=== PATIENT | female | born 2000 | race African-American/Black ===

== ENCOUNTER 2019-06-07 02:21 | Emergency (ER) | payer BC ==
[2019-06-07] MEDS ORDERED: Prochlorperazine 10 MG/2 ML SDV IVPUSH ONE (03:11)
[2019-06-07] MEDS ORDERED: diphenhydrAMINE 50 MG/ML SDV IVPUSH ONE (03:11)
[2019-06-07] MEDS ORDERED: Sodium Chloride 0.9% 1,000 ML IV ONE (03:13)
--- NOTE | 2019-06-07 04:33 | CT ---
HISTORY: Headache. TECHNIQUE: CT brain without contrast. COMPARISON: None. FINDINGS: No acute intracranial hemorrhage. No extra-axial collection. No mass effect or midline shift. Palacios-white differentiation is maintained. Ventricular system is normal in caliber and morphology. Cisterns are patent. Calvarium is intact. Moderate mucosal thickening in the right maxillary sinus with small amount of layering fluid. Mastoid air cells are clear. IMPRESSION: 1. No acute intracranial abnormality. 2. Inflammatory changes in the right maxillary sinus. Please note that all CT scans at this facility use dose modulation, iterative reconstruction, and/or weight-based dosing when appropriate to reduce radiation dose to as low as reasonably achievable. Dictated by David Jacobson MD @ Jun 07 2019 4:29AM Signed by Dr. David Jacobson @ Jun 07 2019 4:31AM
[2019-06-07] MEDS ORDERED: Ketorolac 30 MG/ML SDV IVPUSH ONE (04:56)
--- NOTE | 2019-06-07 05:16 | EDM.PDOC ---
ED HPI GENERAL MEDICAL PROBLEM - General Chief Complaint: Headache Stated Complaint: MIGRAINE Time Seen by Provider: 06/07/19 03:38 Source of Information: Reports: Patient - History of Present Illness INITIAL COMMENTS - FREE TEXT/NARRATIVE: Pt with no pmh presents with 1.5 weeks of right sided headache. Pt reports photophobia and phonophobia. no nausea or vomiting or fever. Headache Pain Score (Numeric/FACES): 6 - Related Data Allergies Allergy/AdvReac Type Severity Reaction Status Date / Time No Known Allergies Allergy Verified 06/07/19 03:28 Home Meds: Home Meds . 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 Musculoskeletal History: Reports: None Neurological History: Reports: Migraines Psychiatric History: Reports: Depression Endocrine/Metabolic History: Reports: None Hematologic History: Reports: None Immunologic History: Reports: None Oncologic (Cancer) History: Reports: None Dermatologic History: Reports: None - Infectious Disease History Infectious Disease History: Reports: None - Past Surgical History Head Surgeries/Procedures: Reports: None Social & Family History - Tobacco Use Smoking Status *Q: Current Every Day Smoker Years of Tobacco use: 2 Packs/Tins Daily: 0.1 - Recreational Drug Use Recreational Drug Use: No ED ROS GENERAL - Review of Systems Review Of Systems: See Below Constitutional: Reports: No Symptoms HEENT: Reports: Sinus Problem Respiratory: Reports: No Symptoms Cardiovascular: Reports: No Symptoms GI/Abdominal: Reports: No Symptoms : Reports: No Symptoms Musculoskeletal: Reports: No Symptoms Skin: Reports: No Symptoms Neurological: Reports: Headache. Denies: Numbness, Weakness - Physical Exam Exam: See Below General Appearance: Alert, WD/WN, No Apparent Distress Head Exam: Atraumatic, Normocephalic Neck: Normal Inspection Respiratory/Chest: Lungs Clear, Normal Breath Sounds Cardiovascular: Regular Rate, Rhythm, No Murmur GI/Abdominal: Non-Tender, No Distention Neuro Exam (Abbreviated): Alert, Oriented, CN II-XII Intact, Normal Cognition Course - Vital Signs Last Recorded V/S: Last Vital Signs Temp 97.6 F 06/07/19 05:30 Pulse 110 H 06/07/19 05:30 Resp 16 06/07/19 05:30 BP 121/80 06/07/19 05:30 Pulse Ox 98 06/07/19 05:30 - Orders/Labs/Meds Labs: Laboratory Tests 06/07/19 06/07/19 Range/Units 03:30 03:30 Urine Color YELLOW Urine Appearance CLEAR Urine pH 6.0 (5.0-8.0) Ur Specific Sneads 1.015 (1.001-1.035) Urine Protein NEGATIVE (NEGATIVE) mg/dL Urine Glucose (UA) NEGATIVE (NEGATIVE) mg/dL Urine Ketones NEGATIVE (NEGATIVE) mg/dL Urine Occult Blood NEGATIVE (NEGATIVE) Urine Nitrite NEGATIVE (NEGATIVE) Urine Bilirubin NEGATIVE (NEGATIVE) Urine Urobilinogen 0.2 (<2.0) EU/dL Ur Leukocyte Esterase TRACE H (NEGATIVE) Urine RBC NONE SEEN (0-2/HPF) Urine WBC 0-3 (0-5/HPF) Ur Epithelial Cells MODERATE (NONE-FEW) Urine Bacteria FEW (NEGATIVE) Urine Mucus LIGHT (NONE-MOD) Urine HCG, Qual NEGATIVE (NEGATIVE) Meds: Medications Discontinued Medications Generic Name Dose Route Start Last Admin Trade Name Freq PRN Reason Stop Dose Admin Diphenhydramine HCl 25 mg 06/07/19 03:11 06/07/19 03:37 Benadryl IVPUSH 06/07/19 03:12 25 mg ONETIME ONE Administration Sodium Chloride 1,000 mls @ 999 mls/hr 06/07/19 03:13 06/07/19 03:36 Normal Saline IV 06/07/19 04:13 999 mls/hr .Bolus ONE Administration Ketorolac Tromethamine 30 mg 06/07/19 04:56 06/07/19 05:09 Toradol IVPUSH 06/07/19 04:57 Not Given ONETIME ONE Prochlorperazine Edisylate 10 mg 06/07/19 03:11 06/07/19 03:40 Compazine IVPUSH 06/07/19 03:12 10 mg ONETIME ONE Administration - Re-Assessments/Exams Free Text/Narrative Re-Assessment/Exam: VS stable and PE benign. CT Head negative other than sinusitis. Flonase recommended. Symptoms completely resolved with ED therapy and pt comfortable with discharge. Strict return precaution discussed should symptoms worsen or any concerns arise Departure - Departure Time of Disposition: 05:20 Disposition: Home, Self-Care 01 Condition: Good Clinical Impression: Migraine, Sinusitis - Discharge Information *PRESCRIPTION DRUG MONITORING PROGRAM REVIEWED*: Not Applicable *COPY OF PRESCRIPTION DRUG MONITORING REPORT IN PATIENT ALEJANDRA: Not Applicable Instructions: Recurrent Migraine Headache, [id number], Sinus Headache, Easy- to-Read Referrals: PCP,None [Primary Care Provider] - Forms: ED Department Discharge Additional Instructions: The following information is given to patients seen in the emergency department who are being discharged to home. This information is to outline your options for follow-up care. We provide all patients seen in our emergency department with a follow-up referral. The need for follow-up, as well as the timing and circumstances, are variable depending upon the specifics of your emergency department visit. If you don't have a primary care physician on staff, we will provide you with a referral. We always advise you to contact your personal physician following an emergency department visit to inform them of the circumstance of the visit and for follow-up with them and/or the need for any referrals to a consulting specialist. The emergency department will also refer you to a specialist when appropriate. This referral assures that you have the opportunity for follow-up care with a specialist. All of these measure are taken in an effort to provide you with optimal care, which includes your follow-up. Under all circumstances we always encourage you to contact your private physician who remains a resource for coordinating your care. When calling for follow-up care, please make the office aware that this follow-up is from your recent emergency room visit. If for any reason you are refused follow-up, please contact the [facility] Emergency Department at and asked to speak to the emergency department charge nurse. [facility] [address] [place] [id number] [address] Sepsis Event Note - Evaluation Sepsis Screening Result: No Definite Risk - Focused Exam Date Exam was Performed: 06/09/19 Time Exam was Performed: 00:12
== END 2019-06-07 05:30 | disposition home or self-care (01) ==
LOC: MW.ED 02:21
DX: G43.909 Migraine, unspecified, not intractable, without status migrainosus (principal); J32.9 Chronic sinusitis, unspecified; F17.210 Nicotine dependence, cigarettes, uncomplicated
CPT/HCPCS: 70450; 81001; 81025; 87086; 96361; 96374; 96375; 99284; J0780; J1200; J7030; 99283

== ENCOUNTER 2021-02-12 23:00 | Emergency (ER) | payer SELFPAY | END 2021-02-12 23:19 | disposition left against medical advice (07) | LOC: MW.ED 23:00 | DX: Z53.21 Procedure and treatment not carried out due to patient leaving prior to being seen by health care provider (principal) ==

== ENCOUNTER 2021-02-13 08:48 | Emergency (ER) | payer SELFPAY ==
--- NOTE | 2021-02-13 08:54 | EDM.PDOC ---
ED HPI GENERAL MEDICAL PROBLEM - General Chief Complaint: ENT Problem Stated Complaint: TOOTH ABSCESS/DRAIN Time Seen by Provider: 02/13/21 08:49 Source of Information: Reports: Patient History Limitations: Reports: No Limitations - History of Present Illness INITIAL COMMENTS - FREE TEXT/NARRATIVE: 20-year-old female presents for pain and swelling of the left maxillary face. S he is concerned that she has a dental abscess. She has an appointment with a dentist next week but is unable to get in until then considering into the weekend. She was here last night for similar but left as the wait time was quite long. She notes continued pain throughout the evening. Denies fevers. Denies respiratory difficulties. 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 ED EXAM, GENERAL - Physical Exam Exam: See Below Exam Limited By: No Limitations General Appearance: Alert, WD/WN, No Apparent Distress Ears: Hearing Grossly Normal Nose: Normal Inspection Throat/Mouth: Normal Voice, No Airway Compromise, Other (Swelling of the left maxillary face consistent with underlying dental abscess, erythema of gums on the left upper teeth.) Head: Atraumatic, Normocephalic Neck: Normal Inspection Respiratory/Chest: No Respiratory Distress, Lungs Clear, Normal Breath Sounds, No Accessory Muscle Use Cardiovascular: Normal Peripheral Pulses, Regular Rate, Rhythm Extremities: Normal Inspection Neurological: Alert, Normal Cognition, Normal Gait Psychiatric: Normal Affect, Normal Mood Skin Exam: Warm, Dry, Intact, Normal Color Course - Vital Signs Last Recorded V/S: Last Vital Signs Temp 97.7 F 02/13/21 08:58 Pulse 112 H 02/13/21 08:58 Resp 19 02/13/21 08:58 BP 127/87 02/13/21 08:58 Pulse Ox 99 02/13/21 08:58 - Re-Assessments/Exams Free Text/Narrative Re-Assessment/Exam: 02/13/21 09:15 Symptoms consistent with dental abscess. Will give Augmentin prescription. Will give analgesia. Recommend follow-up with dentist next week. Return precautions discussed. Departure - Departure Time of Disposition: 09:09 Disposition: Home, Self-Care 01 Condition: Good Clinical Impression: Dental abscess - Discharge Information Prescriptions: Amoxicillin/Clavulanate K [Augmentin 875-125 MG] 1 tab PO BID 10 Days #20 tablet Acetaminophen/oxyCODONE [Percocet 325-5 MG] 1 each PO Q4H PRN #12 tab PRN Reason: Pain Instructions: Dental Abscess, [id number] Referrals: PCP,None [Primary Care Provider] - Forms: ED Department Discharge Additional Instructions: You appear to have a dental abscess. Antibiotics were prescribed. Please follow-up with your dentist. Even if your symptoms are rapidly improving I would suggest following up with your dentist as they are likely to recur without dental intervention. If you are having difficulty breathing or if symptoms are not improving despite antibiotics and come back to the emergency department for reassessment. Thank you for trusting us with your care today. The following information is given to patients seen in the emergency department who are being discharged to home. This information is to outline your options for follow-up care. We provide all patients seen in our emergency department with a follow-up referral. The need for follow-up, as well as the timing and circumstances, are variable depending upon the specifics of your emergency department visit. If you don't have a primary care physician on staff, we will provide you with a referral. We always advise you to contact your personal physician following an emergency department visit to inform them of the circumstance of the visit and for follow-up with them and/or the need for any referrals to a consulting specialist. The emergency department will also refer you to a specialist when appropriate. This referral assures that you have the opportunity for follow-up care with a specialist. All of these measure are taken in an effort to provide you with optimal care, which includes your follow-up. Under all circumstances we always encourage you to contact your private physician who remains a resource for coordinating your care. When calling for follow-up care, please make the office aware that this follow-up is from your recent emergency room visit. If for any reason you are refused follow-up, please contact the [facility] Emergency Department at and asked to speak to the emergency department charge nurse. Please follow up with your primary care physician. If you do not have a primary care physician, see below: [facility] [address] [place] [phone] [facility] [address] [place] [address] [facility] [address] [place] [id number] Sepsis Event Note (ED) - Focused Exam Vital Signs: Vital Signs Temp Pulse Resp BP Pulse Ox 02/13/21 08:58 97.7 F 112 H 19 127/87 99
== END 2021-02-13 09:27 | disposition home or self-care (01) ==
LOC: MW.ED 08:48
DX: K04.7 Periapical abscess without sinus (principal)
CPT/HCPCS: 99282

== ENCOUNTER 2021-02-21 10:45 | Emergency (ER) | payer SELFPAY ==
[2021-02-21] MEDS ORDERED: predniSONE 20 MG Tab PO ONE (11:16)
--- NOTE | 2021-02-21 11:21 | EDM.PDOC ---
ED HPI GENERAL MEDICAL PROBLEM - General Chief Complaint: Skin Complaint Stated Complaint: BODY HIVES Time Seen by Provider: 02/21/21 11:00 Source of Information: Reports: Patient History Limitations: Reports: No Limitations - History of Present Illness INITIAL COMMENTS - FREE TEXT/NARRATIVE: HISTORY AND PHYSICAL: History of present illness: The patient is a 20-year-old female who presents to the emergency room with complaints of a full body rash/hives that came up yesterday evening. The patient describes the hives as very itchy. The patient had a dental extraction on for which she was started on amoxicillin and hydrocodone. She denies any shortness of breath or throat itchiness. The patient did have some lip swelling and facial swelling yesterday evening and earlier this morning but has resolved. She states she has not taken any medication such as Benadryl. She has never had this happen before. Prior to today she has never had an allergic reaction. Patient denies any fever, chills, headache, change in vision, syncope or near syncope. Denies any chest pain, back pain, shortness of breath or cough. Denies any abdominal pain, nausea, vomiting, diarrhea, constipation or dysuria. Has not noted any blood in urine or stool. Patient has been eating and drinking appropriately. Review of systems: As per history of present illness and below otherwise all systems reviewed and negative. Past medical history: As per history of present illness and as reviewed below otherwise noncontributory. Surgical history: As per history of present illness and as reviewed below otherwise noncontributory. Social history: See social history for further information Family history: As per history of present illness and as reviewed below otherwise noncont ributory. Physical exam: General: Well developed and well nourished. Alert and orientated x 3. Nontoxic in appearance and in no acute distress. Vital signs are stable and have been reviewed by me. Nursing notes were reviewed. HEENT: Atraumatic, normocephalic, pupils equal and reactive bilaterally, negative for conjunctival pallor or scleral icterus, mucous membranes moist, TMs normal bilaterally, throat clear, neck supple, nontender, trachea midline. No drooling or trismus noted. No meningeal signs. No hot potato voice noted. Lungs: Clear to auscultation bilaterally. No wheezes, rales, or rhonchi. Chest nontender. Normal work of breathing, no accessory muscles used. Heart: S1S2, regular rate and rhythm without overt murmur, gallops, or rubs. No JVD. No peripheral edema Abdomen: Soft, nondistended, nontender. Normoactive bowel sounds. Negative for masses or costovertebral tenderness. Skin: Intact, warm, dry. Hives noted covering face, anterior posterior trunk, upper and lower extremities. Hematologic: No petechiae or purpra. Mucosa appropriate color and normal nail bed color and refill. Extremities: Atraumatic, moves all extremities per self without difficulty or deficits, negative for cords or calf pain. Neurovascular unremarkable. Neuro: Awake, alert, oriented. Cranial nerves II through XII unremarkable. Cerebellum unremarkable. Motor and sensory unremarkable throughout. Exam nonfocal. Psychiatric: Mood and affect are appropriate. Normal thought process. Answering questions appropriately. Notes: *This patient was seen and evaluated during the 2019 SARS-CoV-2 novel coronavirus pandemic period. Community viral transmission is ongoing at time of this encounter and the emergency department is operating under pandemic response procedures. As stated above the patient is a 20-year-old female who presents with urticaria that started last night after the patient started on amoxicillin and hydrocodone for tooth extraction on . The patient describes her urticaria is very itchy. The patient states that she had noted some facial swelling and perioral swelling. I will treat the patient with 40 mg of prednisone daily for 5 days. I will give her her first dose in the emergency department. I have instructed the patient that she can use Benadryl or Claritin [id number] for her itchiness. I educated the patient on when she will need to return to the emergency department for symptoms. I educated the patient of the need for her to tell all healthcare providers and anyone that ask about her allergies that she is allergic to amoxicillin and hydrocodone as we do not cannot tell which one caused the allergic reaction. I have talked with the patient about today's findings, in addition to providing specific details for plan of care. Reassessment at the time of disposition demonstrates that the patient is in no acute distress. The patient is stable for discharge, counseling was provided and we discussed in great detail signs and symptoms that would prompt them to return to the Emergency Department. Medication, follow up and supportive care measures were reviewed and discussed. Voices understanding and is agreeable to plan of care. Denies any further questions or concerns at this time. Therapeutics: Prednisone 40 mg Prescription: Prednisone 40 mg p.o. daily x4 Impression: Drug allergy reaction Plan: 1. You were evaluated today on an emergent basis. Your complaints of a rash or hives covering your entire body was evaluated and found to be caused by an allergic reaction either from your amoxicillin or from the hydrocodone that you started on for your dental extraction. You need to stop taking the amoxicillin and the hydrocodone. You need to tell any health professional that you are allergic to amoxicillin and hydrocodone. I have treated you with prednisone 40 mg in the ER. You will take prednisone 40 mg daily for 4 days. You can also take Benadryl 50 mg for your itching or you could take Claritin which is less sedating. If you have any kind of shortness of breath or facial swelling or swelling around your mouth please return to the emergency department as this could be life-threatening. 2. You can alternate Tylenol and ibuprofen as needed for pain and fever management. 3. We encourage you to follow up with your primary care provider and/or recommended specialist in the next few days for re-evaluation and further care/management. 4. If your symptoms should worsen, new symptoms develop or any of the signs and symptoms we discussed should arise please return to the emergency room or call 911 (if needed). Definitive disposition and diagnosis as appropriate pending reevaluation and review of above. - Related Data Allergies Allergy/AdvReac Type Severity Reaction Status Date / Time No Known Allergies Allergy Verified 02/21/21 11:08 Home Meds: Home Meds predniSONE [Prednisone] 40 mg PO DAILY 4 Days #8 tablet 02/21/21 [Rx] Past Medical History - Past Health History Medical/Surgical History: Denies Medical/Surgical History HEENT History: Reports: None Cardiovascular History: Reports: None Respiratory History: Reports: None Gastrointestinal History: Reports: None Genitourinary History: Reports: None [employer] History: Reports: None Musculoskeletal History: Reports: None Neurological History: Reports: Migraines Psychiatric History: Reports: Depression Endocrine/Metabolic History: Reports: None Hematologic History: Reports: None Immunologic History: Reports: None Oncologic (Cancer) History: Reports: None Dermatologic History: Reports: None - Infectious Disease History Infectious Disease History: Reports: None - Past Surgical History Head Surgeries/Procedures: Reports: None Social & Family History - Family History Family Medical History: No Pertinent Family History - Caffeine Use Caffeine Use: Reports: Energy Drinks ED ROS GENERAL - Review of Systems Review Of Systems: Comprehensive ROS is negative, except as noted in HPI. ED EXAM, SKIN/RASH Exam: See Below (See dictation) Course - Vital Signs Last Recorded V/S: Last Vital Signs Temp 98.3 F 02/21/21 11:09 Pulse 106 H 02/21/21 11:09 Resp 18 02/21/21 11:09 BP 124/83 02/21/21 11:09 Pulse Ox 98 02/21/21 11:09 - Orders/Labs/Meds Meds: Medications Discontinued Medications Generic Name Dose Route Start Last Admin Trade Name Freq PRN Reason Stop Dose Admin Prednisone 40 mg 02/21/21 11:16 Prednisone 20 Mg Tab PO 02/21/21 11:17 ONETIME ONE Departure - Departure Time of Disposition: 11:19 Disposition: Home, Self-Care 01 Condition: Good Clinical Impression: Urticaria due to drug allergy - Discharge Information *PRESCRIPTION DRUG MONITORING PROGRAM REVIEWED*: Not Applicable *COPY OF PRESCRIPTION DRUG MONITORING REPORT IN PATIENT ALEJANDRA: Not Applicable Prescriptions: predniSONE [Prednisone] 40 mg PO DAILY 4 Days #8 tablet Instructions: Hives Referrals: PCP,None [Primary Care Provider] - Forms: ED Department Discharge Additional Instructions: The following information is given to patients seen in the emergency department who are being discharged to home. This information is to outline your options for follow-up care. We provide all patients seen in our emergency department with a follow-up referral. The need for follow-up, as well as the timing and circumstances, are variable depending upon the specifics of your emergency department visit. If you don't have a primary care physician on staff, we will provide you with a referral. We always advise you to contact your personal physician following an emergency department visit to inform them of the circumstance of the visit and for follow-up with them and/or the need for any referrals to a consulting specialist. The emergency department will also refer you to a specialist when appropriate. This referral assures that you have the opportunity for follow-up care with a specialist. All of these measure are taken in an effort to provide you with optimal care, which includes your follow-up. Under all circumstances we always encourage you to contact your private physician who remains a resource for coordinating your care. When calling for follow-up care, please make the office aware that this follow-up is from your recent emergency room visit. If for any reason you are refused follow-up, please contact the [facility] Emergency Department at and asked to speak to the emergency department charge nurse. [facility] [address] [place] [address] [facility] [address] [place] [id number] Plan: 1. You were evaluated today on an emergent basis. Your complaints of a rash or hives covering your entire body was evaluated and found to be caused by an allergic reaction either from your amoxicillin or from the hydrocodone that you started on for your dental extraction. You need to stop taking the amoxicillin and the hydrocodone. You need to tell any health professional that you are allergic to amoxicillin and hydrocodone. I have treated you with prednisone 40 mg in the ER. You will take prednisone 40 mg daily for 4 days. You can also take Benadryl 50 mg for your itching or you could take Claritin which is less sedating. If you have any kind of shortness of breath or facial swelling or swelling around your mouth please return to the emergency department as this could be life-threatening. 2. You can alternate Tylenol and ibuprofen as needed for pain and fever management. 3. We encourage you to follow up with your primary care provider and/or recommended specialist in the next few days for re-evaluation and further care/m anagement. 4. If your symptoms should worsen, new symptoms develop or any of the signs and symptoms we discussed should arise please return to the emergency room or call 911 (if needed). Sepsis Event Note (ED) - Evaluation Sepsis Screening Result: No Definite Risk - Focused Exam Vital Signs: Vital Signs Temp Pulse Resp BP Pulse Ox 02/21/21 11:09 98.3 F 106 H 18 124/83 98
== END 2021-02-21 11:46 | disposition home or self-care (01) ==
LOC: MW.ED 10:45
DX: L50.0 Allergic urticaria (principal); T36.0X5A Adverse effect of penicillins, initial encounter; T40.2X5A Adverse effect of other opioids, initial encounter
CPT/HCPCS: 99282; A9270

== ENCOUNTER 2021-05-27 05:50 | Emergency (ER) | payer SELFPAY | END 2021-05-27 06:05 | LOC: MW.ED 05:50 | DX: S09.90XA Unspecified injury of head, initial encounter (principal); Z88.0 Allergy status to penicillin; W22.8XXA Striking against or struck by other objects, initial encounter | CPT/HCPCS: 99283 ==

== ENCOUNTER 2021-11-27 18:22 | Emergency (ER) | payer SELFPAY ==
[2021-11-27] MEDS ORDERED: Sodium Chloride 0.9% 1,000 ML IV ONE (19:37)
[2021-11-27] MEDS ORDERED: diphenhydrAMINE 50 MG/ML SDV IVPUSH ONE (20:22)
[2021-11-27 20:34] LABS: POTASSIUM,K 3.7 mmol/L (3.5-5.1)
[2021-11-27 20:35] LABS: CARBON DIOXIDE,CO2 22.7 mmol/L (21.0-32.0)
== END 2021-11-27 21:39 | disposition home or self-care (01) ==
LOC: MW.ED 18:22
DX: O99.892 Other specified diseases and conditions complicating childbirth (principal); R51.9 Headache, unspecified; Z3A.27 27 weeks gestation of pregnancy; Z88.0 Allergy status to penicillin; Z79.899 Other long term (current) drug therapy
CPT/HCPCS: 36415; 80053; 81003; 85025; 85652; 86140; 96361; 96374; 99284; J1200; J7030

== ENCOUNTER 2022-02-23 00:29 | Inpatient (IN) | payer SELFPAY ==
[2022-02-23] MEDS ORDERED: Misoprostol 25 MCG (1/4 of 100 MCG) Tab PO ONE (01:00)
[2022-02-23] MEDS ORDERED: Misoprostol 25 MCG (1/4 of 100 MCG) Tab VAG ONE (01:00)
[2022-02-23] MEDS ORDERED: Nalbuphine HCl 10 MG/ 1ML Amp IV ONE (07:30)
[2022-02-23] MEDS ORDERED: Ropivacaine HCl/PF 400 MG in Premix Bag 1 BAG IV ONE (13:33)
[2022-02-23] MEDS ORDERED: Dexmedetomidine 200 MCG/2 ML SDV IV ONE (13:33)
[2022-02-23] MEDS ORDERED: Ibuprofen 800 MG Tab PO ONE (16:53)
[2022-02-23] MEDS ORDERED: Oxytocin/0.9 % Sodium Chloride 30 UNIT/500 ML BAG IV ONE (17:30)
== END 2022-02-24 21:05 | disposition home or self-care (01) | DRG 807 ==
LOC: MW.OBCHECK 00:29 → MW.ZCENSUS 00:30 → OBSVTOIN 17:40
PROVIDERS: ADMIT Obstetrics & Gynecology Obstetrics; ATTEND Obstetrics & Gynecology Obstetrics
PROC: 10E0XZZ Delivery of Products of Conception, External Approach (ICD-10-PCS; principal; 2022-02-23)
PROC: 10907ZC Drainage of Amniotic Fluid, Therapeutic from Products of Conception, Via Natural or Artificial Opening (ICD-10-PCS; 2022-02-23)
PROC: 3E0R3BZ Introduction of Anesthetic Agent into Spinal Canal, Percutaneous Approach (ICD-10-PCS; 2022-02-23)
PROC: 00HU33Z Insertion of Infusion Device into Spinal Canal, Percutaneous Approach (ICD-10-PCS; 2022-02-23)
DX: O80 Encounter for full-term uncomplicated delivery (principal); Z37.0 Single live birth; Z3A.39 39 weeks gestation of pregnancy
CPT/HCPCS: 51702; 59025; 59409; A9270-GY; J2300; J2590; J2795

== ENCOUNTER 2022-10-23 14:43 | Emergency (ER) | payer SELFPAY ==
[2022-10-23] MEDS ORDERED: Lidocaine/Epineph/Tetracaine 3 ML Syringe TOP ONE (17:04)
[2022-10-23] MEDS ORDERED: Diphtheria,Pertussis(Acell),Tetanus Vaccine 0.5 ML Syringe IM ONE (17:13)
[2022-10-23] MEDS ORDERED: Lidocaine 1% PF 2 ML SDV INJECT ONE (17:13)
[2022-10-23] MEDS ORDERED: traMADol 50 MG Tab PO ONE (17:59)
== END 2022-10-23 18:16 | disposition home or self-care (01) ==
LOC: MW.ED 14:43
DX: S61.210A Laceration without foreign body of right index finger without damage to nail, initial encounter (principal); Z88.0 Allergy status to penicillin; Z23 Encounter for immunization; W25.XXXA Contact with sharp glass, initial encounter
CPT/HCPCS: 12001; 90471; 90715; 99283; A9270; J3490

== ENCOUNTER 2023-08-31 00:48 | Inpatient (IN) | payer SELFPAY ==
[2023-08-31] MEDS ORDERED: Misoprostol 200 MCG Tab PO PRN (00:50)
[2023-08-31] MEDS ORDERED: Tranexamic Acid IN NACL,ISO-OS 1,000 MG in Premix Bag 1 BAG IV PRN (00:50)
[2023-08-31] MEDS ORDERED: Carboprost Tromethamine 250 MCG/1 mL Vial IM PRN (00:50)
[2023-08-31] MEDS ORDERED: Methylergonovine 0.2 MG/1 ML Amp IM PRN (00:50)
[2023-08-31] MEDS ORDERED: Sodium Chloride 0.9% 2.5 ML Syringe FLUSH PRN (00:50)
[2023-08-31] MEDS ORDERED: Lidocaine 1% 50 ML MDV INJECT PRN (00:50)
[2023-08-31] MEDS ORDERED: Sodium Chloride 0.9% 20 ML SDV IV PRN (00:50)
[2023-08-31] MEDS ORDERED: Terbutaline 1 MG/ML SDV SUBCUT PRN (00:50)
[2023-08-31] MEDS ORDERED: Misoprostol 25 MCG (1/4 of 100 MCG) Tab VAG PRN ×2 (00:50)
[2023-08-31] MEDS ORDERED: Sodium Chloride 0.9% 10 ML Syringe FLUSH PRN (00:50)
[2023-08-31] MEDS ORDERED: Water For Irrigation,Sterile 1,000 ML Container IRR PRN (00:50)
[2023-08-31] MEDS ORDERED: Oxytocin/0.9 % Sodium Chloride 30 UNIT/500 ML BAG IV SCH (01:00)
[2023-08-31 02:25] LABS: HEMATOCRIT 33.3 % (37.0-47.0); MEAN CORPUSCULAR HEMOGLOBIN 27.1 pg (28.0-32.0); MEAN PLATELET VOLUME 12.1 fL (9.4-12.3); PLATELET COUNT,PLT 175 K/uL (150-400); RED BLOOD CELL COUNT 4.06 M/uL (4.10-5.30); WHITE BLOOD CELL COUNT,WBC 4.13 K/uL (3.9-11.3)
[2023-08-31] MEDS: Lactated Ringers 1,000 ML IV SCH (03:53)
[2023-08-31] MEDS: Oxytocin/0.9 % Sodium Chloride 30 UNIT/500 ML BAG IV SCH (03:57)
[2023-08-31] MEDS: Misoprostol 25 MCG (1/4 of 100 MCG) Tab PO SCH (04:17)
[2023-08-31] MEDS: Nalbuphine 10 MG/0.5 ML Syringe IVPUSH PRN (05:01)
[2023-08-31] MEDS: Ropivacaine HCl/PF 400 MG in Premix Bag 1 BAG EPIDUR SCH (11:03)
[2023-08-31] MEDS ORDERED: Phenylephrine HCl In 0.9% NaCl 1 MG/10 ML Syringe IVPUSH PRN (11:10)
[2023-08-31] MEDS ORDERED: ePHEDrine 50 MG/ML SDV IVPUSH PRN ×2 (11:10)
[2023-08-31] MEDS: Bupivacaine 0.5% 10 ML SDV ONE (11:21)
[2023-08-31] MEDS: Ropivacaine HCl/PF 200 ML ONE (11:21)
[2023-08-31] MEDS: Phenylephrine HCl 0.5 MG/5 ML AMP ONE (11:21)
[2023-08-31] MEDS ORDERED: Phenylephrine HCl 0.5 MG/5 ML AMP IVPUSH PRN (12:33)
[2023-08-31] MEDS: Phenylephrine HCl 0.5 MG/5 ML AMP IVPUSH PRN (12:33)
[2023-08-31] MEDS: Ondansetron 4 MG/2 ML SDV IVPUSH PRN (12:37)
[2023-08-31] MEDS ORDERED: Lanolin 100% Cream 7 GM Tube TOP PRN (21:22)
[2023-08-31] MEDS ORDERED: Witch Hazel Medicated Pads 40/Jar TOP PRN (21:22)
[2023-08-31] MEDS ORDERED: Benzocaine/Menthol 20%-0.5% Spray 78 GM Cannister TOP PRN (21:22)
[2023-09-01] MEDS: Ibuprofen 800 MG Tab PO PRN (00:07)
[2023-09-01] MEDS: Acetaminophen 500 MG Tab PO PRN (00:07)
[2023-09-01 06:39] LABS: HEMATOCRIT 30.6 % (37.0-47.0); HEMOGLOBIN 10.2 g/dL (12.0-16.0)
[2023-09-01] MEDS: Docusate Sodium 100 MG Cap PO PRN (08:57)
== END 2023-09-01 23:20 | disposition home or self-care (01) | DRG 807 ==
LOC: MW.OBCHECK 00:48 → MW.OB 00:49 → MW.OBCHECK 00:50 → MW.OB 00:50 → OBSVTOIN 21:06 → MW.OB 09-01
PROVIDERS: ADMIT Obstetrics & Gynecology Obstetrics; ATTEND Obstetrics & Gynecology Obstetrics
PROC: 10E0XZZ Delivery of Products of Conception, External Approach (ICD-10-PCS; principal; 2023-08-31)
DX: O26.893 Other specified pregnancy related conditions, third trimester (principal); Z37.0 Single live birth; Z67.21 Type B blood, Rh negative; Z3A.39 39 weeks gestation of pregnancy; Z88.0 Allergy status to penicillin
CPT/HCPCS: 36415; 51702; 59025; 59409; 85014; 85018; 85027; 86592; 86850; 86900; 86901; A9270-GY; J0665; J2300; J2371; J2405; J2590; J2795; J7120